=== PATIENT | male | born 1940 | race Caucasian/White ===

== ENCOUNTER 2022-12-03 16:11 | Outpatient (CLI) | payer MEDICARE, OTHER, SELFPAY ==
--- NOTE | ~2022-12-03 | XR_ITS ---
EXAMINATION: XR lumbar spine min 4V DATE: 12/03/2022 16:38 INDICATION: Spinal stenosis of the lumbar region TECHNIQUE: Anteroposterior and lateral in neutral, flexion and extension views of the lumbar spine, a nd cone-down lateral view of the lumbosacral junction were obtained. COMPARISON: None. FINDINGS: Bone alignment is normal. There is no hypermobility with flexion or extension. The vertebra l body heights are maintained. There is no fracture. There is moderate loss of intervertebral disc sp tam height at L3-4 and L4-5 and mild loss of disc space height throughout the remainder of the lumbar spine. 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 Small degenerative oste ophytes project from the anterior endplates of multiple vertebral bodies. Calcified atherosclerosis i s noted. IMPRESSION: 1. Moderate lumbar spondylosis without acute findings. Reviewed, dictated and finalized at location F.
== END 2022-12-03 16:12 | disposition home or self-care (01) ==
LOC: ANHIMG 16:17
PROVIDERS: PCP Family Medicine; Visit Provider Neurological Surgery
DX: M48.061 Spinal stenosis, lumbar region without neurogenic claudication (principal); M43.06 Spondylolysis, lumbar region
CPT/HCPCS: 72110